=== PATIENT | male | born 1950 | race Caucasian/White ===

== ENCOUNTER → 2024-01-13 10:16 | Outpatient (REF) | payer MEDICARE, OTHER, SELFPAY | LOC: HWRAD 10:16 | PROVIDERS: ATTENDING PHYSICIAN Internal Medicine; FAMILY PHYSICIAN Internal Medicine | DX: R80.9 Proteinuria, unspecified (principal) | CPT/HCPCS: 76770 ==

== ENCOUNTER 2025-05-14 16:57 | Inpatient (IN) | payer MEDICARE, OTHER, SELFPAY ==
[2025-05-14] VITALS (8 sets, daily range): BP systolic 136–169; BP diastolic 59–71; BMI 27.7
--- NOTE | 2025-05-14 09:48 | ED.GENMED ---
History of Present Illness
General
Chief Complaint: Abdominal Pain
Time Seen by Provider: 05/14/25 09:20
History of Present Illness
History of Present Illness:
74-year-old male with history of hypertension, diabetes, hyperlipidemia presenting to the emergency department for abdominal discomfort. Patient notes that last night he ate some pork chops, which may have been old. About 3 hours after eating a
pork chops, had multiple episodes of vomiting and also an episode of diarrhea. Has since been having generalized abdominal discomfort as well as additional episodes of vomiting. Denies any history of abdominal surgeries. Denies associated chest
pain or difficulty breathing. Denies any fever. Denies any issues with indigestion or any issues with his gallbladder. Denies additional acute medical complaints.
Phy Exam
Physical Exam
Physical Exam:
General: Well-appearing, no clinical signs of dehydration, nontoxic and in no acute distress
HEENT: protecting airway
Neck: appears supple
CV: Normal heart rate
Resp: No accessory muscle use, no increased work of breathing, lungs clear to auscultation bilaterally
Abd: Soft and non-distended, generalized tenderness to the lower abdomen with right lower quadrant greater than left lower quadrant
Extremities: No deformities, no swelling
Neuro: alert, no focal neurologic deficit
: deferred
Rectal: deferred
Psych: Normal affect
Skin: Intact
Course
Orders/Labs/Results
Orders:
Orders
05/14/25 08:33
Electrocardiogram (*1) Urgent
Reason for Study: Abdominal Pain
EKG- Treatment ONCE
05/14/25 09:31
CT Abd/pelvis W Iv Cont Urgent
Comment:
Reason For Exam: N/V, abdominal pain, R>L
Urinalysis Reflex To Culture Urgent
Date Specimen was Collected: 05/14/25
Time Specimen was Collected: 09:47
0.9% Sodium Chloride 1000 ml [Nss] 1,000 ml IV BOLUS
Ketorolac [Toradol] 15 mg IV NOW STA
Ondansetron Injectable [Zofran] 4 mg IV NOW STA
05/14/25 10:14
Basic Metabolic Panel Urgent
Complete Blood Count/With Diff Urgent
Lipase Urgent
05/14/25 13:02
Morphine Sulfate 4 mg IV NOW STA
NSS 1000mL Bolus WIDE OPEN 0.9% Sodium Chloride 1000 ml [Nss] 1,000 ml IV BOLUS
Abnormal Lab Results
05/14/25
10:14
WBC 20.6 H 10^3/uL
(4.8-10.8)
Abs Immat Gran (auto) 0.1 H 10^3/uL
(0-0.05)
Absolute Neuts (auto) 18.1 H 10^3/uL
(1.4-6.5)
Absolute Monos (auto) 1.1 H 10^3/uL
(0.1-0.6)
Neutrophils % 87.9 H %
(42.2-75.2)
Lymphocytes % 6.1 L %
(20.5-51.1)
Carbon Dioxide 19 L mmol/L
(22-30)
BUN 28 H mg/dl
(9-20)
Glucose 135 H mg/dl
(70-99)
Lipase 3839 H* U/L
(23-300)
05/14/25 10:14
05/14/25 10:14
Vital Signs
Initial and Last Documented VS:
Initial Vital Signs
Temp Pulse Resp BP Pulse Ox
97.8 F 76 17 169/71 100
05/14/25 08:01 05/14/25 08:01 05/14/25 08:01 05/14/25 08:01 05/14/25 08:01
Last Documented Vital Signs
Temp Pulse Resp BP Pulse Ox
97.8 F 76 17 149/59 98
05/14/25 08:01 05/14/25 08:01 05/14/25 08:01 05/14/25 12:00 05/14/25 12:17
MDM/Problems Addressed
MDM/Problems Addressed:
74-year-old male presenting to the emergency department for nausea, vomiting, abdominal pain since yesterday. Vital signs on arrival are significant for mild hypertension.
On exam patient is resting comfortably, no acute distress. He is afebrile, nontoxic. Patient notes that symptoms started after he ate dinner, followed by vomiting and diarrhea. Viral gastroenteritis is a consideration. Rachael lithiasis versus
cholecystitis versus gastritis is also consideration. Lower suspicion without focal tenderness to the upper abdomen. Acute appendicitis is also consideration, focal tenderness to the right lower quadrant. For this reason, we will obtain
laboratory analysis and CT abdominal imaging. Will treat patient with IV fluids, Zofran, Toradol and reassess
13:00- Patient's labs show elevated lipase with concern for pancreatitis. Patient also with leukocytosis. CT shows evidence of colitis, consistent with patient's symptoms. However additionally there is a mention of a partially thrombosed
infrarenal saccular abdominal aortic aneurysm. May be an underlying chronic partial dissection plane, no present rupture. Will discuss with vascular, however at this time feel patient warrants admission for concern of pancreatitis. Will continue
IV fluids and pain control
*Pulse Oximetry
SaO2: 100
Oxygen Mode of Delivery: Room air
Patient hypoxic: no
*Critical Care Note
Total Time (30-74mins, 75-104mins- exclusive of procedures): Not Applicable
ED Attending Note
-
Portions of this chart may have been created with voice recognition software.� Occasional wrong word or��sound alike� substitutions may have occurred due to the inherent limitations of voice recognition software.
Discharge Plan
Departure
Prescriptions:
No Action
metformin 500 mg Tablet
1,000 mg PO BID
atorvastatin 80 mg Tablet
80 mg PO QPM
glipizide 10 mg Tablet
10 mg PO BID
amlodipine 5 mg Tablet
5 mg PO DAILY
allopurinol 100 mg Tablet
100 mg PO DAILY
magnesium oxide 400 mg (241.3 mg magnesium) Tablet
400 mg PO DAILY
lisinopril 40 mg Tablet
40 mg PO DAILY
Januvia 25 mg Tablet
25 mg PO DAILY
Referrals:
Jerrod Keyes MD [Family Provider, Internal Medicine]
Discharge Date and Time
Print Language: KYRGYZ
[2025-05-14] MEDS: TORADOL 15 MG IV (10:14)
[2025-05-14] MEDS: ZOFRAN 4 MG IV (10:15)
[2025-05-14] MEDS: NSS 1000 IV ×4 (10:15→23:03)
[2025-05-14 10:47] LABS: Blood Urea Nitrogen 28 mg/dl (9-20); Calcium 10.1 mg/dl (8.4-10.2); Carbon Dioxide 19 mmol/L (22-30); Chloride 104 mmol/L (98-107); Glucose 135 mg/dl (70-99); Sodium 135 mmol/L (135-145); eGFR > 60.00
[2025-05-14 10:48] LABS: Hematocrit 45.0 % (39.0-52.0); Hemoglobin 15.2 g/dL (13.0-18.0); Mean Corp Hgb Conc. 33.8 g/dL (33.0-37.0); Mean Corpuscular Volume 89.3 fL (80.0-94.0); Nucleated Red Blood Cells % 0 % (-); Platelet Count 266 10^3/uL (130-400); Red Cell Dist. Width 12.6 % (11.5-14.5)
[2025-05-14 11:11] LABS: Lipase 3839 U/L (23-300)
[2025-05-14] MEDS: MORPHINE SULFATE 4 MG IV (13:21)
--- NOTE | 2025-05-14 14:08 | HPS.HSE ---
Addendum entered and electronically signed by Refugio Madrigal MD 05/14/25 15:53:
This is an addendum to H&P written by Tyra Anderson on 05/14/2025. �Patient seen and examined independently with resident.
74-year-old male past medical history of hypertension, diabetes, CAD, SVT, gout, presenting with diarrhea nausea vomiting, epigastric abdominal pain after eating pork chop last night. �No fever.
Vital signs unremarkable. �Labs show leukocytosis of 20. �Base of 3800.
CT abdomen pelvis shows acute uncomplicated left-sided colitis. �Probable enteritis/ileus. �Partially thrombosed infrarenal saccular abdominal aortic aneurysm measuring 4 x 3.9 cm. �May be underlying chronic partial dissection plane in this region.
�No rupture.
Patient would likely acute colitis/enteritis, possible pancreatitis. �Lipase elevated but no evidence of pancreatitis on imaging. �N.p.o., IV fluids, check stool studies. �Hold sitagliptin
Finding of partially thrombosed infrarenal saccular abdominal aortic aneurysm likely chronic. �Vascular surgery consulted.
Original Note:
Family Physician
-
Family Physician: Jerrod Keyes
Chief Complaint
-
Abd pain
History of Present Illness
This is a 74-year-old male patient with PMH of HTN, DM, gout, SVT and CAD presenting to the hospital with concerns of abdominal pain. He states that last night after eating old pork chops he has started to experience epigastric nonradiating
constant abdominal pain , diarrhea, nausea and vomiting. He denies any fever, history of travel or prior similar episodes. No hx of sick contacts, recent antibiotics or heavy alcohol consumption.
Medical History
Past Medical History
Past Medical History: Reports CAD, HTN, NIDDM and Other (SVT, gout)
Past Surgical History: Reports Cardiac (stent 2011, ablation 2024)
Social History
Tobacco: Non-smoker
Alcohol: Occasional
Drug: None
Personal:
Living: With Family
Employment: Retired
Family History
Family History: Not pertinent
Allergies / Home Medications
Allergies reflects when Allergies were last updated in [employer].
Home Medications with original date entered in [employer]
Allergy/Medication List:
Allergies
Allergy/AdvReac Type Severity Reaction Status Date / Time
Sulfa (Sulfonamide Allergy Intermediate Rash Verified 05/14/25 08:03
Antibiotics)
Home Medications
allopurinol 100 mg tablet 100 mg PO DAILY 05/14/25
amlodipine 5 mg tablet 5 mg PO DAILY 05/14/25
atorvastatin 80 mg tablet 80 mg PO QPM 05/14/25
glipizide 10 mg tablet 10 mg PO BID 05/14/25
lisinopril 40 mg tablet 40 mg PO DAILY 05/14/25
magnesium oxide 400 mg (241.3 mg magnesium) tablet 400 mg PO DAILY 05/14/25
metformin 500 mg tablet 1,000 mg PO BID 05/14/25
sitagliptin phosphate 25 mg tablet (Januvia) 25 mg PO DAILY 05/14/25
Review of Systems
-
A 12 point ROS was completed and negative except as noted: Yes
Abdomen/GI: Reports Abdominal Pain, Nausea, Vomiting and Diarrhea
Physical Exam
Vital Signs
Vital Signs
Temp Pulse Resp BP Pulse Ox
97.8 F 76 17 149/59 98
05/14/25 08:01 05/14/25 08:01 05/14/25 08:01 05/14/25 12:00 05/14/25 12:17
Physical Exam
General: Well Developed and Well Nourished
HEENT: NormoCephalic
Respiratory: Clear
Cardiac: S1/S2 and Regular Rhythm
GI: Soft, Non Distended and Tender (epigastric)
Musculoskeletal: No Clubbing, No Cyanosis and No Edema
Skin: Warm and Dry
Neuro: Awake, Alert and Oriented
Psych: Calm
Laboratory Results
-
05/14/25 10:14
05/14/25 10:14
Laboratory Results
Total Bilirubin Cancelled 05/14/25 10:14
AST Cancelled 05/14/25 10:14
ALT Cancelled 05/14/25 10:14
Alkaline Phosphatase Cancelled 05/14/25 10:14
Lipase 3839 U/L (23-300) H* 05/14/25 10:14
Impression/Plan
-
IMPRESSION:This is a 74-year-old male patient with PMH of HTN, DM, gout, SVT and CAD presenting to the hospital with concerns of abdominal pain.
PLAN:
#Abdominal pain- likely due to colitis/pancreatitis
-Abd CT: Acute uncomplicated left-sided colitis
-Lipase: 3839
- Start IVF, keep NPO
- continue pain management with tylenol, IV dilaudid and IV zofran
- Hold Januvia for possible etiology of pancreatitis
- stool culture, norovirus ordered for diarrhea
- will hold off on abx for now
- follow cbc and cmp
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
-Abd CT: Partially thrombosed infrarenal saccular abdominal aortic aneurysm measuring up to 4.0 x 3.9 cm
-vascular consult
#HTN
-cotinue home meds
#DM2
- hold oral DM meds
- Start ISS
- Accuchecks and HS
#Gout
- continue allopurinol
Code: Full Code
DVT: SCDs
[2025-05-14 14:09] LABS: Urine Character Clear (Clear)
[2025-05-14 14:31] LABS: Urine Squamous Cell 0-2 /LPF (Few)
[2025-05-14 14:32] LABS: Urine Red Blood Cell 0-2 /HPF (0-2)
[2025-05-14] MEDS: NORVASC 5 MG PO (16:43)
--- NOTE | 2025-05-14 16:54 | EDRN ---
Patient has not had an episode of diarrhea since 1829 on 05/13/25. At that time it was a small amount and none prior to that.
[2025-05-14] MEDS: TYLENOL PO (20:48)
[2025-05-14 21:00] LABS: Glucose - Point of Care 101 mg/dl (70-99)
[2025-05-14] MEDS: TYLENOL 650 MG PO ×2 (21:09→23:48)
[2025-05-14] MEDS: LIPITOR 80 MG PO (21:09)
[2025-05-14 23:47] LABS: Glucose - Point of Care 97 mg/dl (70-99)
[2025-05-15] MEDS: TYLENOL PO ×2 (03:15→20:14)
[2025-05-15] MEDS: TYLENOL 650 MG PO ×4 (04:03→17:48)
[2025-05-15] MEDS: NSS 1000 IV (05:36)
[2025-05-15 05:42] LABS: Glucose - Point of Care 113 mg/dl (70-99)
[2025-05-15 06:43] LABS: ALT (SGPT) 19 U/L (0-50); AST (SGOT) 20 U/L (17-59); Albumin 3.5 g/dl (3.5-5.0); Alkaline Phosphatase 57 U/L (38-126); Blood Urea Nitrogen 20 mg/dl (9-20); Calcium 8.7 mg/dl (8.4-10.2); Carbon Dioxide 20 mmol/L (22-30); Chloride 108 mmol/L (98-107); Estimated Creatinine Clearance 75 ml/min; Glucose 113 mg/dl (70-99); Potassium 4.4 mmol/L (3.5-5.1); Sodium 134 mmol/L (135-145); Total Protein 5.9 g/dl (6.3-8.2); eGFR > 60.00
[2025-05-15 07:09] VITALS: BP 144/63
[2025-05-15] MEDS: ZESTRIL 40 MG PO (08:02)
[2025-05-15] MEDS: NORVASC 5 MG PO (08:03)
[2025-05-15] MEDS: ZYLOPRIM 100 MG PO (08:04)
[2025-05-15 08:43] LABS: Hematocrit 37.4 % (39.0-52.0); Hemoglobin 12.8 g/dL (13.0-18.0); Mean Corp Hgb Conc. 34.2 g/dL (33.0-37.0); Mean Corpuscular Volume 88.4 fL (80.0-94.0); Nucleated Red Blood Cells % 0 % (-); Platelet Count 212 10^3/uL (130-400); Red Cell Dist. Width 12.8 % (11.5-14.5)
--- NOTE | 2025-05-15 09:46 | W.PN.HOSP.TC ---
Addendum entered and electronically signed by Clemente Miranda MD 05/15/25 22:05:
Attending Addendum-
I saw and evaluated the patient. I reviewed the resident�s note and agree with findings and plan as documented in the resident�s note. Sub: complains of mild lower abd pain in belt distribution with constipation passing flatus. no fevers chills N/V.
Seen with present. Full 12 point ROS reviewed and negative except as documented Exam: Vitals reviewed in chart GEN-NAD Heart RRR Lungs clear abd soft TTP lower abdomen no rebound/guarding bruit auscultated LE no edema
#Abdominal pain- due to colitis with reactive pancreatitis
-Abd CT 05/14- Acute uncomplicated left-sided colitis
-Lipase on presentation 3839
-change fluid to LR, keep NPO for now, advance to clears in pm
- continue pain management
- Hold Januvia
- no diarrhea start bowel regimin
- leukocytosis resolving
- no indication for abx
- follow cbc and cmp
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
-Abd CT: Partially thrombosed infrarenal saccular abdominal aortic aneurysm measuring up to 4.0 x 3.9 cm
-abd U/S-Aneurysm of the distal abdominal aorta, measured at 4 cm in greatest transverse dimension
-vascular consult-f/u 6 months as OP
#HTN
-continue amlodipine and lisinopril
#DM2
- hold oral DM meds
- cont ISS
- Accuchecks and HS
#Gout
- continue allopurinol
Code: Full Code
DVT: SCDs
ACP
Patient consented to discuss, was with , time spent explanation of advance directives, changes in health status, patient�s health care wishes if the patient becomes unable to make health decisions, goals of care, code status, and prognosis- 16
minutes
Time spent coordinating care, review of plan of care with resident, personally reviewed previous records in EMR, med rec, labs, radiology, d/w nursing, family total time documented is exclusive of any additional time listed that was spent in advance
care planning discussion -�51 minutes
Original Note:
Today's Communication/Plan
-
Keep n.p.o., bowel rest
Continue IV fluids, optimize pain management
Trend WBC
Follow triglyceride levels
Add bowel regimen
Advance diet as tolerated, plan to introduce clears in the evening if patient feels better
Assessment / Plan
Assessment / Plan
Impression
74-year-old male, with past medical history significant for hypertension, hyperlipidemia, gout, coronary artery disease s/p stent in 2011 and history of cardiac ablation who presented with abdominal pain and periumbilical region and right and left
upper quadrant.
Pain began shortly after he ate his dinner on Tuesday, followed by an episode of diarrhea and 2 episodes of vomiting. Reported severe pain overnight, came to the ER in the morning and has been n.p.o. since then.
Abdominal CT-concerning for infectious colitis/pancreatitis
Lipase greater than 3000
WBC 20.6 on admission
Bilirubin 2.6
Assessment/plan
#Acute pancreatitis
Abdominal CT scan negative for any calcified gallstones
Reports drinking alcohol once in a while every 2 to 3 weeks
No history of fall or trauma
Follow triglyceride levels
Keep n.p.o.
Possible clear liquid diet starting in the evening
Continue IV fluids
Optimize pain management
WBC count trending down
Keep trending WCC and temperature
#Leukocytosis
Most likely reactive, trending down
Hold off antibiotics, continue to monitor
#Isolated hyperbilirubinemia
Continue to trend
#Acute uncomplicated left-sided colitis
CT abdomen'pelvis shows acute uncomplicated left-sided colitis, probable enteritis/ileitis
Stool culture
Stool testing for norovirus
Bowel rest, IV fluids, hold off antibiotics for now
WBC trending down
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
Incidental finding on abdominal CT, measuring up to 4 x 3.9 cm
Patient not aware of this diagnosis in the past
Currently asymptomatic
Denies any smoking history or any family history
Vascular consult
#HTN
-cotinue home meds
#DM2
- hold oral DM meds
- Start ISS
- Accuchecks and HS
#Gout
- continue allopurinol
Code: Full Code
DVT: SCDs
Anticipated Discharge: 24 - 48 hours
Subjective/Interval History
-
Date of Service: May 15, 2025
Patient seen and examined at bedside. Overall feeling well, no further episodes of vomiting or diarrhea since admission to the hospital.
Reports abdominal pain and periumbilical right and left upper quadrant that comes and goes in waves, currently 4/10 intensity, dull achy in nature and reports pain with deep breathing as well.
Objective Data
-
Labs:
Laboratory Results
05/15/25
05:45
WBC 14.7 H
Hgb 12.8 L
Hct 37.4 L
Plt Count 212 D
Sodium 134 L
Potassium 4.4
Chloride 108 H
Carbon Dioxide 20 L
BUN 20
Creatinine 0.9
Glucose 113 H
Calcium 8.7
Total Bilirubin 2.6 H
AST 20
ALT 19
Alkaline Phosphatase 57
Vital Signs:
Vital Signs
Temp Pulse Resp BP Pulse Ox
97.8 F 80 18 144/63 95
05/15/25 07:09 05/15/25 08:02 05/15/25 07:09 05/15/25 08:02 05/15/25 07:09
Review of Systems
-
Constitutional: Reports No Appetite and Fatigue
EENT: Reports No Symptoms Reported
Respiratory: Reports No Symptoms
Cardiac: Reports No Symptoms
Abdomen/GI: Reports Abdominal Pain and Nausea
Breast: Reports No Symptoms
Genitourinary: Reports No Symptoms
Skin: Reports No Symptoms
Neuro: Reports No Symptoms
Endocrine: Reports No Symptoms
Hematologic / Lymphatic: Reports No Symptoms
Allergy / Immunology: Reports No Symptoms
Psych: Reports Anxious
Physical Exam
-
General: No Apparent Distress, Comfortable and Conversant
HEENT: Normocephalic, Atraumatic and Moist Mucous Membranes
Respiratory: Clear to Auscultation; Negative Wheezes, Rales or Rhonchi
Cardiac: Regular Rhythm and S1/S2; Negative Murmur, Rub or Gallop
GI: Soft, Normal Bowel Sounds and Tender (Mild tenderness in periumbilical, right upper quadrant and left upper quadrant)
Musculoskeletal: No Clubbing, No Cyanosis and No Edema
Skin: Warm and Dry; Negative Rash, Ulcers or Lesions
Neuro: Awake, AO x 3 and No Motor Deficits
Psych: Calm
--- NOTE | 2025-05-15 09:53 | W.PN.UPDATE ---
Update Note
Progress Note Update
Seen and examined with TENDER COORDINATOR. Full consultation to follow. 74-year-old male asked to evaluate regarding finding incidentally of an abdominal aortic aneurysm. Patient 2 days ago developed abdominal pain/nausea/vomiting/diarrhea that all began
somewhat shortly after eating a pork chop. Had continued symptoms and therefore presented to the emergency room. Workup demonstrated findings consistent with pancreatitis. He underwent CT scan imaging that incidentally demonstrated no abdominal
aortic aneurysm. (Also revealed colitis). Patient with no prior known history of an aortic aneurysm. No family history of aortic aneurysms. Denies any history of claudication of the lower extremities. Cardiovascular risk factors include
diabetes, hypertension, hyperlipidemia, coronary artery disease (stent x 1). Denies any tobacco use.
On exam/he is awake and alert. No acute distress. Breathing is unlabored. Abdomen is soft, nondistended, minimally tender to to deep palpation. No tenderness overlying the aorta. Lower extremity with 2+ femoral, popliteal, pedal pulses palpable
easily bilaterally.
I reviewed CT scan imaging completed yesterday. Demonstrates about 3.9 x 4.0 cm infrarenal abdominal aortic aneurysm. Moderate atherosclerotic plaque throughout the abdominal aorta. (Eccentrically).
Plan/ Incidental finding of 4 cm saccular abdominal aortic aneurysm (infrarenal). Discussed with patient this finding. Arnulfo diagrams to facilitate his anatomic understanding. Discussed aneurysm/natural history. Discussed indications for repair.
He has no first-degree relatives with history of aneurysms (no known genetic risk factors). There is moderate atherosclerotic plaque indicating that this could be in an area of plaque rupture/weakening. Regardless based on appearance and size,
this appears chronic saccular aneurysm. Would favor ultrasound as a baseline so that we can use ultrasound going forward. Follow-up in the office with repeat ultrasound in 6 months. Discussed importance of continued surveillance with the patient.
He will follow-up with us in the office for continued surveillance in 6 months with repeat ultrasound. If any growth is noted, then we will consider repair.
[2025-05-15 10:32] LABS: HDL Cholesterol 44 mg/dl; LDL Cholesterol, Calculated 27 mg/dl; Triglycerides 71 mg/dl (10-149); Very Low Density Lipoprotein 14 mg/dl (0-30)
--- NOTE | 2025-05-15 10:34 | CON.VAS ---
Consultation
Consultation Request
Date/Time Consultation Performed: 05/15/25 @ 10am
Performing Provider: Jerod
Reason for Consultation: AAA
Medical History
-
Chief Complaint: AAA finding
History of Present Illness:
74-year-old male with PMH significant for HTN, DM, gout, SVT and CAD asked to evaluate regarding finding incidentally of an abdominal aortic aneurysm. Patient 2 days ago developed abdominal pain/nausea/vomiting/diarrhea that all began somewhat
shortly after eating a pork chop. Had continued symptoms and therefore presented to the emergency room. Workup demonstrated findings consistent with pancreatitis. He underwent CT scan imaging that incidentally demonstrated no abdominal aortic
aneurysm. (Also revealed colitis). Patient with no prior known history of an aortic aneurysm. No family history of aortic aneurysms. Denies any history of claudication of the lower extremities. Cardiovascular risk factors include diabetes,
hypertension, hyperlipidemia, coronary artery disease (stent x 1). Denies any tobacco use.
Past Medical History
Past Medical History: Other (HTN, DM, gout, SVT and CAD)
Past Surgical History: Cardiac (stent 2011, ablation 2024)
Social History
Tobacco: Non-Smoker
Alcohol: Occasional
Drug: None
Personal:
Living: With Family
Employment: Retired
Family History
Family History: Reviewed & Not Pertinent
Allergies / Home Medications
Allergy/AdvReac Type Severity Reaction Status Date / Time
Sulfa (Sulfonamide Allergy Rash Verified 05/14/25 15:50
Antibiotics)
�Medication �Instructions �Recorded �Confirmed �Type
allopurinol 100 mg tablet 100 mg PO DAILY 05/14/25 05/14/25 History
amlodipine 5 mg tablet 5 mg PO DAILY 05/14/25 05/14/25 History
atorvastatin 80 mg tablet 80 mg PO QPM 05/14/25 05/14/25 History
glipizide 10 mg tablet 10 mg PO BID 05/14/25 05/14/25 History
lisinopril 40 mg tablet 40 mg PO DAILY 05/14/25 05/14/25 History
magnesium oxide 400 mg (241.3 mg 400 mg PO DAILY 05/14/25 05/14/25 History
magnesium) tablet
metformin 500 mg tablet 1,000 mg PO BID 05/14/25 05/14/25 History
sitagliptin phosphate 25 mg tablet 25 mg PO DAILY 05/14/25 05/14/25 History
(Surinder)
Review of Systems
-
History Source: Patient
All other systems: Negative unless noted
Constitutional: Reports No Symptoms
EENT: Reports No Symptoms
Respiratory: Reports No Symptoms
Cardiac: Reports No Symptoms
Vascular: Denies Leg Pain / Claudication
Abdomen/GI: Reports Abdominal Pain
: Reports No Symptoms
Musculoskeletal: Reports No Symptoms
Skin: Reports No Symptoms
Neurological: Reports No Symptoms
Physical Exam
Vital Signs
Temp Pulse Resp BP Pulse Ox
97.8 F 80 18 144/63 95
05/15/25 07:09 05/15/25 08:02 05/15/25 07:09 05/15/25 08:02 05/15/25 07:09
Lab Results
05/15/25 05:45
05/15/25 05:45
Physical Exam
General: No Apparent Distress
HEENT: Normocephalic and Atraumatic
Respiratory: Non Labored Respirations
Cardiac: Negative JVD
GI: Soft, Non Tender and Other (minimally tender to to deep palpation. No tenderness overlying the aorta)
Skin: Warm
Neuro: Awake, Alert and Oriented
Psych: Calm
Pulses: Bilateral Femoral: +2, Bilateral Popliteal: +2 and Bilateral Dorsalis Pedis: +2
Assessment / Plan
-
I reviewed CT scan imaging completed yesterday. Demonstrates about 3.9 x 4.0 cm infrarenal abdominal aortic aneurysm. Moderate atherosclerotic plaque throughout the abdominal aorta. (Eccentrically).
Plan/ Incidental finding of 4 cm saccular abdominal aortic aneurysm (infrarenal). Discussed with patient this finding. Arnulfo diagrams to facilitate his anatomic understanding. Discussed aneurysm/natural history. Discussed indications for repair.
He has no first-degree relatives with history of aneurysms (no known genetic risk factors). There is moderate atherosclerotic plaque indicating that this could be in an area of plaque rupture/weakening. Regardless based on appearance and size,
this appears chronic saccular aneurysm. Would favor ultrasound as a baseline so that we can use ultrasound going forward. Follow-up in the office with repeat ultrasound in 6 months. Discussed importance of continued surveillance with the patient.
He will follow-up with us in the office for continued surveillance in 6 months with repeat ultrasound. If any growth is noted, then we will consider repair.
Data Reviewed
-
CT Scan: Discussed with Patient
Labs: Labs Reviewed by me
[2025-05-15] MEDS: NSS IV (12:27)
[2025-05-15] MEDS: LR 1000 IV ×2 (12:30→21:07)
[2025-05-15 12:45] LABS: Glucose - Point of Care 119 mg/dl (70-99)
[2025-05-15 15:05] VITALS: BP 148/69
--- NOTE | 2025-05-15 16:00 | CM ---
Alert awake oriented patient who lives with his Sabra in a 2 story home with 2 step to enter and 10 steps to bed and bathroom. He is independent in driving and in all activities of daily living.He was offered VN he declined need.His
will drive him home.
NO VN hx / No SNF history
Pharmacy [facility]
PCP DR Keyes
PLAN Home Declined VN
[2025-05-15 16:46] LABS: Glucose - Point of Care 125 mg/dl (70-99)
[2025-05-15] MEDS: LIPITOR 80 MG PO (17:48)
[2025-05-15 21:32] LABS: Glucose - Point of Care 128 mg/dl (70-99)
[2025-05-15 23:00] VITALS: BP 143/69
[2025-05-16] MEDS: LR 1000 IV (03:42)
[2025-05-16 05:53] LABS: Hematocrit 36.0 % (39.0-52.0); Hemoglobin 12.0 g/dL (13.0-18.0); Mean Corp Hgb Conc. 33.3 g/dL (33.0-37.0); Mean Corpuscular Volume 87.4 fL (80.0-94.0); Nucleated Red Blood Cells % 0 % (-); Platelet Count 180 10^3/uL (130-400); Red Cell Dist. Width 12.6 % (11.5-14.5)
[2025-05-16 06:18] LABS: ALT (SGPT) 19 U/L (0-50); AST (SGOT) 21 U/L (17-59); Albumin 3.1 g/dl (3.5-5.0); Alkaline Phosphatase 57 U/L (38-126); Blood Urea Nitrogen 15 mg/dl (9-20); Calcium 8.6 mg/dl (8.4-10.2); Carbon Dioxide 22 mmol/L (22-30); Chloride 105 mmol/L (98-107); Estimated Creatinine Clearance 75 ml/min; Glucose 130 mg/dl (70-99); Lipase 508 U/L (23-300); Magnesium 1.5 mg/dl (1.6-2.3); Potassium 4.2 mmol/L (3.5-5.1); Sodium 131 mmol/L (135-145); Total Protein 5.4 g/dl (6.3-8.2); eGFR > 60.00
[2025-05-16 07:00] VITALS: BP 149/68
[2025-05-16] MEDS: MAGNESIUM SULFATE 102 GRAMS IV (07:51)
[2025-05-16] MEDS: ZESTRIL 40 MG PO (07:53)
[2025-05-16] MEDS: MIRALAX 17 GRAMS PO (07:53)
[2025-05-16] MEDS: NORVASC 5 MG PO (07:54)
[2025-05-16] MEDS: ZYLOPRIM 100 MG PO (07:54)
--- NOTE | 2025-05-16 07:59 | W.PN.HOSP.TC ---
Addendum entered and electronically signed by Clemente Miranda MD 05/16/25 22:03:
Attending Addendum-
I saw and evaluated the patient. I reviewed the resident�s note and agree with findings and plan as documented in the resident�s note. Sub: abd pain in belt distribution greatly improved, had formed BM this AM. passing flatus. no fevers chills N/V.
Full 12 point ROS reviewed and negative except as documented Exam: Vitals reviewed in chart GEN-NAD Heart RRR Lungs clear abd soft mild TTP lower abdomen no rebound/guarding bruit auscultated LE no edema
#Abdominal pain- due to colitis with reactive pancreatitis
-Abd CT 05/14- Acute uncomplicated left-sided colitis
-Lipase on presentation [id number]
-change fluid to LR, keep NPO for now, advance to clears in pm
- continue pain management
- restart Januvia
- leukocytosis resolving
- no indication for abx
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
-Abd CT: Partially thrombosed infrarenal saccular abdominal aortic aneurysm measuring up to 4.0 x 3.9 cm
-abd U/S-Aneurysm of the distal abdominal aorta, measured at 4 cm in greatest transverse dimension
-vascular consult-f/u 6 months as OP
#HTN
-continue amlodipine and lisinopril
#Hypomagnesemia-replete
#DM2
- restart oral DM meds
- cont ISS
- Accuchecks and HS
#Gout
- continue allopurinol
Code: Full Code
DVT: SCDs
Time spent coordinating care, DC planning, review of DC plan of care with resident, transition of care, review of records, med rec/scripts sent electronically, consults, notes, d/w consultants, nursing, and CM� 33 mins >50% of this time was devoted
to counseling and coordination of care
Original Note:
Today's Communication/Plan
-
Low residue diet
Stop IV fluids
bowel regimen
Assessment / Plan
Assessment / Plan
Impression
74-year-old male, with past medical history significant for hypertension, hyperlipidemia, gout, coronary artery disease s/p stent in 2011 and history of cardiac ablation who presented with abdominal pain and periumbilical region and right and left
upper quadrant.
Pain began shortly after he ate his dinner on Tuesday, followed by an episode of diarrhea and 2 episodes of vomiting. Reported severe pain overnight, came to the ER in the morning and has been n.p.o. since then.
Abdominal CT-concerning for infectious colitis/pancreatitis
Lipase greater than 3000
WBC 20.6 on admission
Bilirubin 2.6
Assessment/plan
#Acute pancreatitis
Abdominal CT scan negative for any calcified gallstones
Reports drinking alcohol once in a while every 2 to 3 weeks
No history of fall or trauma
Normal triglyceride levels
Stop IV fluids, advance diet to low residue-tolerated well
Optimize pain management
WBC count trending down
Continue low residue diet and low fat diet
#Leukocytosis
Most likely reactive, trending down
Hold off antibiotics, continue to monitor
#Isolated hyperbilirubinemia
Trending down-continue to monitor
#Acute uncomplicated left-sided colitis
CT abdomen'pelvis shows acute uncomplicated left-sided colitis, probable enteritis/ileitis
Patient had no further episodes of diarrhea, no fever or chills-no likely benefit of stool studies at this point
Bowel rest, IV fluids, hold off antibiotics for now
WBC trending down
# Hypomagnesemia
Repleted
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
Incidental finding on abdominal CT, measuring up to 4 x 3.9 cm
Asymptomatic
Vascular surgery consult appreciated-6 monthly ultrasound and follow-up on outpatient basis
Denies any smoking history or any family history
#HTN
-cotinue home meds
#DM2
- hold oral DM meds
- Start ISS
- Accuchecks and HS
#Gout
- continue allopurinol
Code: Full Code
DVT: SCDs
Anticipated Discharge: Within 24 hours
Subjective/Interval History
-
Date of Service: May 16, 2025
Patient seen and examined at bedside. Complains of discomfort in the periumbilical region, still did not have a bowel movement, passing flatus
No fever or chills overnight, denies any nausea or vomiting
Tolerated clear liquid diet yesterday
Reports significant improvement in pain
Objective Data
-
Labs:
Laboratory Results
05/16/25
05:23
WBC 13.5 H
Hgb 12.0 L
Hct 36.0 L
Plt Count 180
Sodium 131 L
Potassium 4.2
Chloride 105
Carbon Dioxide 22
BUN 15
Creatinine 0.9
Glucose 130 H
Calcium 8.6
Total Bilirubin 2.5 H
AST 21
ALT 19
Alkaline Phosphatase 57
Vital Signs:
Vital Signs
Temp Pulse Resp BP Pulse Ox
98.5 F 82 18 149/68 96
05/16/25 07:00 05/16/25 07:53 05/16/25 07:00 05/16/25 07:53 05/16/25 07:00
I&O
05/15/25 05/16/25 05/17/25
06:59 06:59 06:59
Intake Total 960 / 960
Balance 960 / 960
Review of Systems
-
Constitutional: Reports No Symptoms
EENT: Reports No Symptoms Reported
Respiratory: Reports No Symptoms
Cardiac: Reports No Symptoms
Abdomen/GI: Reports Bloated
Breast: Reports No Symptoms
Genitourinary: Reports No Symptoms
Musculoskeletal: Reports No Symptoms
Skin: Reports No Symptoms
Neuro: Reports No Symptoms
Endocrine: Reports No Symptoms
Hematologic / Lymphatic: Reports No Symptoms
Allergy / Immunology: Reports No Symptoms
Physical Exam
-
General: Well Developed, Well Nourished and No Apparent Distress
HEENT: Normocephalic, Atraumatic and Moist Mucous Membranes
Respiratory: Clear to Auscultation; Negative Wheezes, Rales or Rhonchi
Cardiac: Regular Rhythm and S1/S2; Negative Murmur or Rub
GI: Soft, Nontender and Normal Bowel Sounds
Musculoskeletal: No Clubbing, No Cyanosis and No Edema
Skin: Warm and Dry
Neuro: Awake, AO x 3 and Nonfocal/Grossly Intact
Psych: Calm
[2025-05-16 08:00] LABS: Glucose - Point of Care 137 mg/dl (70-99)
--- NOTE | 2025-05-16 08:06 | W.DCSUMMARY ---
Addendum entered and electronically signed by Clemente Miranda MD 05/16/25 22:04:
Read, reviewed, and agree. See same day progress note for additional details.
Jose David Miranda MD
Original Note:
Documented by User: Tori Vásquez MD, Resident 05/16/25 11:55
Discharge Summary
Discharge Data
Date of Admission: 05/14/25
Date of Discharge: 05/16/25
-
Pending Results: No
Hospital Course
Discharging Physician :
Clemente Miranda
Disposition :
Home
Primary care physician :
Jerrod Keyes
Principal Discharge diagnosis :
Colitis
Reactive acute pancreatitis
Incidental partially thrombosed infrarenal saccular abdominal aortic aneurysm
Chronic Discharge diagnosis :
Essential Hypertension
Diabetes mellitus
Gout
Hospital Course :
74-year-old male, with past medical history as mentioned above presented to ED with abdominal pain in periumbilical region shortly after he had old pork chops for dinner, followed by an episode of diarrhea and 2 episodes of vomiting. Reported
severe pain overnight, came to the ER the next morning. CT scan of the abdomen in the ED showed probable colitis and his lipase was elevated. Since arrival to the hospital, patient reported no further episodes of vomiting or diarrhea. Treated
with bowel rest, IV fluids and pain management. Over the next 24 hours, patient felt better, diet was advanced, tolerated low residue diet. Currently patient stable for discharge, follow-up with PCP on outpatient basis
Important imaging findings :
05/14/25-Abd CT:
1. Acute uncomplicated left-sided colitis, likely of infectious/inflammatory etiology.
2. Probable enteritis/ileus.
3. Partially thrombosed infrarenal saccular abdominal aortic aneurysm measuring up to 4.0 x 3.9 cm. There may be an underlying chronic partial dissection plane in this region. No rupture
05/15/25-abd U/S-Aneurysm of the distal abdominal aorta, measured at 4 cm in greatest transverse dimension
Discharge Plan
-
Patient Disposition: Home (Routine Discharge)
Discharge Diagnosis/Procedures: Colitis with reactive acute Pancreatitis
Condition: Fair
Diet: Low Cholesterol and Low Fiber
Additional Diets: continue low residue diet for a few days and then resume low cholesterol diet
Activity: As tolerated
Driving Restrictions: As prior to admission
Bathing Restrictions: OK to Shower
Others Tests: Ultrasound appt: 11/13 @ 8am
Specialty Instructions: Weigh Daily- Call MD for wt gain/loss 3 lbs overnight/5 lbs in 1 week
Instructions: Viral gastroenteritis in adults, Low-fat diet, Low-fiber diet
Referrals:
Arnulfo Newsome MD [Active, Vascular Surgery] - 11/15/25 3:30 pm
Jerrod Keyes MD [Family Provider, Internal Medicine] - in less than 1 week
Prescriptions:
Continued
metformin 500 mg Tablet
1,000 mg PO BID
atorvastatin 80 mg Tablet
80 mg PO QPM
glipizide 10 mg Tablet
10 mg PO BID
amlodipine 5 mg Tablet
5 mg PO DAILY
allopurinol 100 mg Tablet
100 mg PO DAILY
magnesium oxide 400 mg (241.3 mg magnesium) Tablet
400 mg PO DAILY
lisinopril 40 mg Tablet
40 mg PO DAILY
Januvia 25 mg Tablet
25 mg PO DAILY
Discharge Orders:
Discharge Patient (As Directed); Ordered 05/16/25
Ordered By: Tori Vásquez
Discharge Date and Time
Discharge Date/Time: 05/16/25 13:07
Print Language: MACEDONIAN

Documented by User: Clemente Miranda MD 05/16/25 22:01
Discharge Summary
Discharge Data
Date of Admission: 05/14/25
Date of Discharge: 05/16/25
Discharge Plan
-
Patient Disposition: Home (Routine Discharge)
Discharge Diagnosis/Procedures: Colitis with reactive acute Pancreatitis
Condition: Fair
Diet: Low Cholesterol and Low Fiber
Additional Diets: continue low residue diet for a few days and then resume low cholesterol diet
Activity: As tolerated
Driving Restrictions: As prior to admission
Bathing Restrictions: OK to Shower
Others Tests: Ultrasound appt: 11/13 @ 8am
Specialty Instructions: Weigh Daily- Call MD for wt gain/loss 3 lbs overnight/5 lbs in 1 week
Instructions: Viral gastroenteritis in adults, Low-fat diet, Low-fiber diet
Referrals:
Arnulfo Newsome MD [Active, Vascular Surgery] - 11/15/25 3:30 pm
Jerrod Keyes MD [Family Provider, Internal Medicine] - in less than 1 week
Prescriptions:
Continued
metformin 500 mg Tablet
1,000 mg PO BID
atorvastatin 80 mg Tablet
80 mg PO QPM
glipizide 10 mg Tablet
10 mg PO BID
amlodipine 5 mg Tablet
5 mg PO DAILY
allopurinol 100 mg Tablet
100 mg PO DAILY
magnesium oxide 400 mg (241.3 mg magnesium) Tablet
400 mg PO DAILY
lisinopril 40 mg Tablet
40 mg PO DAILY
Januvia 25 mg Tablet
25 mg PO DAILY
Discharge Orders:
Discharge Patient (As Directed); Ordered 05/16/25
Ordered By: Tori Vásquez
Discharge Date and Time
Discharge Date/Time: 05/16/25 13:07
Print Language: MACEDONIAN
[2025-05-16 11:58] LABS: Glucose - Point of Care 182 mg/dl (70-99)
[2025-05-16 12:38] VITALS: BP 162/65
--- NOTE | 2025-05-16 12:49 | PN.CDI ---
CDI
- -
CDI:
Physician Documentation Request
Admit Date: 05/14/25 16:57
Dear Doctor,
Please review the following and provide your response in the progress notes.
Clinical Indicators:
- Patient admit for colitis with reactive acute pancreatitis
- 05/16 1 gram IV magnesium sulfate given
Laboratory Tests
05/16/25
05:23
Magnesium 1.5 L
Please provide a diagnosis for the above lab values that were monitored and treatment rendered:
Hypomagnesemia
Clinically insignificant abnormal lab value
Other (please specify)
Use of terms such as suspected, likely, concern for, or probable (associated with a specific diagnosis that is being evaluated, monitored, or treated as if it exists) are acceptable and can be coded in the inpatient setting, when documented at the
time of discharge.
Thank you,
Jake Reza RN
CDI Specialist
Please use your independent medical judgment in providing your response.
--- NOTE | 2025-05-16 12:54 | CM ---
MD entered order for discharge.
Pt said his will drive him home
Offered VN he declined need.
PLAN Home no need
[2025-05-18 02:10] LABS: ANA, IgG Reflex to HEp-2 None Detected (None Detected)
== END 2025-05-16 13:07 | disposition home or self-care (01) | DRG 299 ==
LOC: 3 WEST ACU 16:57
PROVIDERS: ADMITTING PHYSICIAN Hospitalist; ATTENDING PHYSICIAN Family Medicine; EMERGENCY PHYSICIAN Student in an Organized Health Care Education/Training Program; FAMILY PHYSICIAN Internal Medicine; OTHER PHYSICIAN Nurse Practitioner Acute Care
DX: I71.43 Infrarenal abdominal aortic aneurysm, without rupture (principal); K85.90 Acute pancreatitis without necrosis or infection, unspecified; I10 Essential (primary) hypertension; E11.9 Type 2 diabetes mellitus without complications; M10.9 Gout, unspecified; K52.9 Noninfective gastroenteritis and colitis, unspecified; E83.42 Hypomagnesemia; E78.5 Hyperlipidemia, unspecified; I25.10 Atherosclerotic heart disease of native coronary artery without angina pectoris; Z79.899 Other long term (current) drug therapy
CPT/HCPCS: 74177; 76770; 80048; 80053; 80061; 81003; 81015; 82962; 83690; 83735; 84478; 85025; 86038; 93005; 96361; 96374; 96375; 99285; Q9967